=== PATIENT | female | born 1990 ===

== ENCOUNTER 2017-08-08 11:37 | Emergency (ER) | payer MEDICAID ==
[2017-08-08 11:37] VITALS: BMI 21.7
[2017-08-08 11:41] VITALS: O2SAT 100
[2017-08-08 12:21] LABS: BASO % 0.5 % (0.0-2.0); EOS # 0.1 K/uL (0.0-0.7); EOS % 1.8 % (0.0-4.0); HEMOGLOBIN 13.6 g/dL (11.0-16.0); LYMPH # 1.9 K/uL (1.0-4.3); LYMPH % 29.7 % (20.0-40.0); MEAN CELL VOLUME 86.4 fL (81.0-99.0); MEAN CORPUSCULAR HEMOGLOBIN 29.1 pg (27.0-31.0); MEAN CORPUSCULAR HGB CONC 33.7 g/dL (33.0-37.0); MEAN PLATELET VOLUME 9.9 fL (7.2-11.7); MONO # 0.4 K/uL (0.0-0.8); MONO % 6.4 % (0.0-10.0); NEUT # 3.9 K/uL (1.8-7.0); NEUT % 61.6 % (50.0-75.0); NRBC % 0.1 % (0.0-2.0); RBC 4.67 Mil/uL (3.80-5.20); RED CELL DISTRIBUTION WIDTH 13.4 % (11.5-14.5); WHITE BLOOD COUNT 6.3 K/uL (4.8-10.8)
[2017-08-08 12:39] LABS: ALB/GLOB RATIO 1.2 (1.0-2.1); ALBUMIN 4.6 g/dL (3.5-5.0); AST/SGOT 25 U/L (14-36); BLOOD UREA NITROGEN 10 mg/dL (7-17); CALCIUM 9.6 mg/dl (8.6-10.4); GFR AFRICAN-AMERICAN > 60; GFR NON-AFRICAN AMERICAN > 60; HCG,QUALITATIVE URINE NEGATIVE (NEGATIVE)
[2017-08-08 12:44] LABS: ALT/SGPT < 6 U/L (9-52)
[2017-08-08 12:46] LABS: SQUAMOUS EPITHIAL 5 /hpf (0-5); URINE BILIRUBIN NEGATIVE (NEGATIVE); URINE BLOOD 3+ (NEGATIVE); URINE CLARITY Hazy (Clear); URINE COLOR Yellow (YELLOW); URINE GLUCOSE (UA) NORMAL (Normal); URINE LEUKOCYTE ESTERASE NEG Leu/uL (Negative); URINE PROTEIN NEGATIVE (NEGATIVE); URINE UROBILINOGEN NORMAL mg/dL (0.2-1.0)
--- NOTE | 2017-08-08 12:50 | C.PDOC ---
History Of Present Illness 26 y/o female A4 presents to ED with c/o vaginal bleeding since yesterday associated with pelvic "cramping". Patient states she used 1 pad today. Reports she found out she was 2 weeks ago and it was confirmed by OBGYN last week though no ultrasound was done. Patient denies fever, chills, dysuria, back pain, n/v/d, vaginal discharge or any other complaints at this time. Time Seen by Provider: 08/08/17 11:43 Chief Complaint (Nursing): Female Genitourinary History Per: Patient History/Exam Limitations: no limitations Onset/Duration Of Symptoms: Days Current Symptoms Are (Timing): Still Present Quality Of Discomfort: "Pain" Associated Symptoms: denies: Fever, Chills, Nausea, Vomiting Past Medical History Reviewed: Historical Data, Nursing Documentation, Vital Signs Vital Signs: Last Vital Signs Temp 99.2 F 08/08/17 15:47 Pulse 56 L 08/08/17 15:47 Resp 18 08/08/17 15:47 BP 109/72 08/08/17 15:47 Pulse Ox 100 08/08/17 16:54 - Medical History PMH: No Chronic Diseases Surgical History: Tonsillectomy (2001) Family History: States: No Known Family Hx - Social History Hx Tobacco Use: No Hx Alcohol Use: Yes Hx Substance Use: Yes (occasional marijuana) - Immunization History Hx Tetanus Toxoid Vaccination: No Hx Influenza Vaccination: No Hx Pneumococcal Vaccination: No Review Of Systems Constitutional: Negative for: Fever, Chills Gastrointestinal: Negative for: Nausea, Vomiting Genitourinary: Positive for: Vaginal Bleeding, Pelvic Pain. Negative for: Vaginal Discharge Skin: Negative for: Rash Physical Exam - Physical Exam Appears: Non-toxic, No Acute Distress Skin: Warm, Dry, No Rash Head: Atraumatic, Normacephalic Eye(s): bilateral: Normal Inspection, EOMI Nose: Normal Oral Mucosa: Moist Neck: Normal ROM, Supple Chest: Symmetrical Cardiovascular: Rhythm Regular Respiratory: Normal Breath Sounds, No Accessory Muscle Use, No Rales, No Rhonchi , No Wheezing Gastrointestinal/Abdominal: Soft, No Tenderness, No Guarding, No Rebound Back: No CVA Tenderness, No Vertebral Tenderness Extremity: Normal ROM Neurological/Psych: Oriented x3, Normal Speech, Normal Cognition ED Course And Treatment - Laboratory Results Result Diagrams: 08/08/17 12:15 08/08/17 12:15 O2 Sat by Pulse Oximetry: 100 (RA) Pulse Ox Interpretation: Normal - CT Scan/US Pelvic US Other Rad Studies (CT/US): Read By Radiologist, Radiology Report Reviewed CT/US Interpretation: HISTORY: bleeding. LMP: 06/28/2017. COMPARISON: None available. TECHNIQUE: Grayscale, color Doppler and spectral evaluation the pelvis performed transabdominally and transvaginally. FINDINGS: UTERUS: Measures 10.0 x 3.7 x 4.6 cm. Anteverted. Normal in size and appearance. No gestational sac. No fibroid or other mass lesion seen. ENDOMETRIUM: Measures 15 mm in diameter. Hypervascular. CERVIX: Measures 3.2 cm. Long and closed. No cervical abnormality identified. RIGHT OVARY: Measures 2.8 x 2.0 x 2.7 cm. No solid mass. Normal flow. LEFT OVARY: Measures 2.8 x 2.1 x 2.9 cm. Cyst measuring 2.2 x 1.7 x 1.9 cm. Normal flow. FREE FLUID: No significant free fluid noted. OTHER FINDINGS: None. IMPRESSION: No intrauterine gestational sac. Findings may represent early normal/ abnormal with ectopic not excluded. Close clinical follow-up with serial pelvic sonography and serum beta HCG level is recommended. Hypervascular endometrium. This a nonspecific finding and may represent retained products of conception if there was a spontaneous completed , arteriovenous malformation, infection among other etiologies. Progress Note: Labs and Results discussed with patient. Pt was instructed for repeat beta hcg in 2 days . Also discussed can not r/o ectopic. Patient discharged and advised to follow up with OBGYN/ER in 2 days for re-evaluation. Disposition - Disposition Disposition: HOME/ ROUTINE Disposition Time: 15:00 Condition: STABLE Additional Instructions: Your BetaHCG is 15 today. FOllow up with your OBGYN in 2-3 days for repeat levels. Return to ER if symptoms persist or worsen. Instructions: Bleeding With (DC) Forms: [employer] (Croatian) - Clinical Impression Clinical Impression: First trimester - PA / STRADDLE BUG / Resident Statement MD/DO has reviewed & agrees with the documentation as recorded. - Scribe Statement The provider has reviewed the documentation as recorded by the Titoibalexandra Mustafa All medical record entries made by the Titoibalexandra were at my direction and personally dictated by me. I have reviewed the chart and agree that the record accurately reflects my personal performance of the history, physical exam, medical decision making, and the department course for this patient. I have also personally directed, reviewed, and agree with the discharge instructions and disposition.
--- NOTE | 2017-08-08 15:07 | US ---
HISTORY: bleeding LMP: 06/28/2017 COMPARISON: None available. TECHNIQUE: Grayscale, color Doppler and spectral evaluation the pelvis performed transabdominally and transvaginally FINDINGS: UTERUS: Measures 10.0 x 3.7 x 4.6 cm. Anteverted. Normal in size and appearance. No gestational sac. No fibroid or other mass lesion seen. ENDOMETRIUM: Measures 15 mm in diameter. Hypervascular. CERVIX: Measures 3.2 cm. Long and closed. No cervical abnormality identified. RIGHT OVARY: Measures 2.8 x 2.0 x 2.7 cm. No solid mass. Normal flow. LEFT OVARY: Measures 2.8 x 2.1 x 2.9 cm. Cyst measuring 2.2 x 1.7 x 1.9 cm. Normal flow. FREE FLUID: No significant free fluid noted. OTHER FINDINGS: None. IMPRESSION: No intrauterine gestational sac. Findings may represent early normal/ abnormal with ectopic not excluded. Close clinical follow-up with serial pelvic sonography and serum beta HCG level is recommended. Hypervascular endometrium. This a nonspecific finding and may represent retained products of conception if there was a spontaneous completed , arteriovenous malformation, infection among other etiologies.
[2017-08-08 15:50] VITALS: BP 109/72; PULSE 56; RESP 18; TEMP 99.2
== END 2017-08-08 15:50 | disposition home or self-care (01) ==
LOC: C.ER 11:37
DX: O26.91 Pregnancy related conditions, unspecified, first trimester (principal); Z3A.00 Weeks of gestation of pregnancy not specified